=== PATIENT | male | born 1995 | race African-American/Black ===

== ENCOUNTER 2025-03-11 12:57 | Emergency (ER) | payer MEDICAID, OTHER ==
[2025-03-11] MEDS ORDERED: Ketorolac Tromethamine 30 MG (1 mL) VIAL ONE (14:02)
== END 2025-03-11 14:10 | disposition home or self-care (01) ==
LOC: ERS 12:57
DX: M25.562 Pain in left knee (principal)
CPT/HCPCS: 96372; 99283; J1885